=== PATIENT | male | born 1980 | race African-American/Black ===

== ENCOUNTER 2024-06-14 12:37 | Emergency (ER) | payer MEDICAID, OTHER ==
[~2024-06-14] VITALS: Ht 162.6 cm; Wt 66.5 kg
[2024-06-14 14:07] LABS: Basophils # (auto) 0 10 ^3/uL (0-0.2); Basophils % (auto) 0.7 % (0.0-2.0); Eosinophils # (auto) 0.3 10 ^3/uL (0-0.8); Eosinophils % (auto) 5.8 % (0.0-7.0); Hematocrit 29.4 % (41.0-53.0); Hemoglobin 10.4 g/dL (13.5-17.5); Lymphocytes # (auto) 1.4 10 ^3/uL (0.4-5.4); Lymphocytes % (auto) 26.9 % (10.0-50.0); Mean Corpuscular Hemoglobin 31.9 pg (28.0-32.0); Mean Corpuscular Hgb Conc. 35.2 g/dL (32.0-36.0); Mean Corpuscular Volume 90.7 fL (80.0-100.0); Monocytes # (auto) 0.4 10 ^3/uL (0-1.3); Monocytes % (auto) 7.7 % (0.0-12.0); Neutrophils # (auto) 3.1 10 ^3/uL (1.6-8.6); Neutrophils % (auto) 58.9 % (37.0-80.0); Red Blood Cells 3.24 10^6/uL (4.5-5.90); Red Cell Distribution Width 14.3 % (11.8-14.3); White Blood Cell 5.3 10^3/uL (4.4-10.8)
[2024-06-14 14:22] LABS: Alanine Aminotransferase 16 U/L (7-40); Albumin 4.2 g/dL (3.2-4.8); Alkaline Phosphatase 81 U/L (46-116); Amylase 144 U/L (30-118); Anion Gap 8 (5-15); Aspartate Aminotransferase 11 U/L (13-40); BUN/Creatinine Ratio 6.9 (10.0-20.0); Bilirubin, Total 0.2 mg/dL (0.2-1.0); Blood Urea Nitrogen 8 mg/dL (9-23); Calcium 9.4 mg/dL (8.7-10.4); Carbon Dioxide 21 mmol/L (20-30); Chloride 112 mmol/L (98-107); Glucose 153 mg/dL (74-106); Lipase 28 U/L (12-53); Potassium 3.7 mmol/L (3.5-5.1); Sodium 141 mmol/L (136-145); Total Protein 6.8 g/dL (5.7-8.2)
[2024-06-14 16:25] LABS: Urine Bacteria None Seen /hpf (None Seen)
[2024-06-14 16:43] LABS: Urine Blood Negative /uL (Negative); Urine Clarity Clear (Clear); Urine Color Yellow (Yellow); Urine Protein, UAD TRACE (Negative); Urine Specific Gravity 1.022 (1.001-1.035); Urine Sperm PRESENT /hpf (None Seen); Urine Urobilinogen Normal (Negative); Urine WBC <1 /hpf (0 - 3)
[2024-06-14] MEDS: IOHEXOL 300 MG/ML 100ML BOTTLE IJ ONE ×2 (20:18)
[2024-06-14 21:13] VITALS: BP 123/68; PULSE 99; RESP 18; TEMP 98.1; O2SAT 100
[2024-06-14] MEDS ORDERED: KETOROLAC TROMETH 30 MG/ML 1ML VIAL IV ONE (21:45)
[2024-06-14] MEDS ORDERED: NAP500T GT (21:45)
[2024-06-14] MEDS: KETOROLAC TROMETH 30 MG/ML 1ML VIAL IM ONE (22:06)
== END 2024-06-14 22:08 | disposition home or self-care (01) ==
LOC: ER 12:39
DX: K86.1 Other chronic pancreatitis (principal); G89.29 Other chronic pain; M54.9 Dorsalgia, unspecified; F20.9 Schizophrenia, unspecified; Z88.8 Allergy status to other drugs, medicaments and biological substances
CPT/HCPCS: 36415; 74177; 80053; 81001; 82150; 83690; 85025; 96372; 99285; J1885; Q9967

== ENCOUNTER 2025-01-15 15:16 | Emergency (ER) | payer MEDICAID ==
[~2025-01-15] VITALS: Ht 177.8 cm; Wt 69.3 kg
[~2025-01-15 15:16] MED LIST: NAP500T GT
[2025-01-15] MEDS ORDERED: ACETAMINOPHEN 500 MG TAB or CAP PO ONE (16:00)
--- NOTE | 2025-01-15 17:01 | DVH ---
INDICATION: Pain/trauma TECHNIQUE: 3 views of the cervical spine were obtained. COMPARISON: None FINDINGS: The cervical spine is visualized from C1-C7. There is loss of the normal cervical lordosis which can be positional. No fractures or subluxations are identified. Multilevel degenerative changes of the spine. Alignment appears unremarkable. Prevertebral soft tissues are within normal limits. IMPRESSION: 1. No evidence for fracture or subluxation.
[2025-01-15] MEDS ORDERED: HYDR-4902 PO (17:12)
[2025-01-15] MEDS ORDERED: CYCL-839 PO (17:12)
[2025-01-15] MEDS ORDERED: IBUP-1455 PO (17:12)
--- NOTE | 2025-01-15 17:12 | ED.PDOC ---
Back pain HPI HPI Comments This patient is a 44-year-old male who comes to the ED today for evaluation of neck pain concerns. Patient has a history of from a to his neck that was recent. Patient states that that event had resolved until two days ago when he jerked his neck dealing with his animal and his neck has been stiff and painful ever since. Patient denies any fever nausea or vomiting. Vital signs were stable on arrival. Chief Complaint: Neck Pain Time Seen by MD: 16:09 Reviewed Notes: Nurses Notes Allergies: Coded Allergies: Valproic Acid (Verified Allergy, Unknown, 06/14/24) Home Meds Active Scripts Naproxen (NAPROSYN TABLET) 500 Mg Tb, 500 MG GT BID for 7 Days, #14 TAB Prov:CARMITA KUMARI MD 06/14/24 Information Source: Patient Mode of Arrival: Ambulatory Timing: Days Duration: Since onset Location of Back pain: (B) Cervical Severity: Moderate Prehospital treatment: Pain Meds Quality: Aching, Burning, Cramping Onset: Other (Strain) Circumstance: Sporting Past Medical History PAST MEDICAL HISTORY: Schizophrenia Past Medical History (Other): Recent neck pain concerns Surgical History: Denies all surgeries Family History Family History: Reviewed,noncontributory to illness, Unknown Social History Smoker: Non-Smoker Alcohol: Heavy, Sober Drugs: Denies Drug Use Lives In: Home Constitutional: denies: chills, diaphoresis, fatigue, fever, malaise, sweats, weakness, others EENTM: denies: blurred vision, double vision, ear bleeding, ear discharge, ear drainage, ear pain, ear ringing, eye pain, eye redness, hearing loss, mouth pain, mouth swelling, nasal discharge, nose bleeding, nose congestion, nose pain, photophobia, tearing, throat pain, throat swelling, voice changes, others Respiratory: denies: cough, hemoptysis, orthopnea, SOB at rest, shortness of breath, SOB with excertion, stridor, wheezing, others Cardiovascular: denies: chest pain, dizzy spells, diaphoresis, Dyspnea on exertion, edema, irregular heart beat, left arm pain, lightheadedness, palpitations, PND, syncope, others Gastrointestinal: denies: abdomen distended, abdominal pain, blood streaked bowels, constipated, diarrhea, dysphagia, difficulty swallowing, hematemesis, melena, nausea, poor appetite, poor fluid intake, rectal bleeding, rectal pain, vomiting, others Genitourinary: denies: burning, dysuria, flank pain, frequency, hematuria, incontinence, penile discharge, penile sore, pain, testicle pain, testicle swelling, urgency, others Neurological: denies: dizziness, fainting, headache, left sided numbness, left sided weakness, numbness, paresthesia, pre-existing deficit, right sided numbness, right sided weakness, seizure, speech problems, tingling, tremors, weakness, others Musculoskeletal: reports: neck pain; denies: back pain, gout, joint pain, joint swelling, muscle pain, muscle stiffness, others Integumetry: denies: bruises, change in color, change in hair/nails, dryness, laceration, lesions, lumps, rash, wounds, others Allergic/Immunocompromised: denies: Difficulty Healing, Frequent Infections, Hives, Itching, others Hematologic/Lymphatic: denies: anemia, blood clots, easy bleeding, easy bruising, swollen glands, others Endocrine: denies: excessive hunger, excessive sweating, excessive thirst, excessive urination, flushing, intolerance to cold, intolerance to heat, unexplained weight gain, unexplained weight loss, others Psychiatric: denies: anxiety, bipolar disorder, depression, hopeless, panic disorder, schizophrenia, sleepless, suicidal, others Physical Exam General Appearance: Moderate Distress (Moderate distress due to neck pain concerns.), Normal HEENT: Normal ENT Inspection, Pharynx Normal, TMs Normal Neck: Other (Diffuse bilateral posterior tenderness to palpation with [id number] hypertonicity appreciated. Patient had significant reduced range of motion. Tender to palpation throughout. No step-offs noted. No raccoon or aleman signs.) Respiratory: Chest Non-Tender, Lungs Clear, No Accessory Muscle Use, No Respiratory Distress, Normal Breath Sounds Cardiovascular: No Edema, No JVD, No Murmur, No Gallop, Normal Peripheral Pulses, Regular Rate/Rhythm Breast Exam: Deferred Gastrointestinal: No Organomegaly, Non Tender, No Pulsatile Mass, Normal Bowel Sounds, Soft Genitalia: Deferred Pelvic: Deferred Rectal: Deferred Extremities: No calf tenderness, Normal capillary refill, Normal inspection, Normal range of motion, Non-tender, No pedal edema Neurologic: Alert, No Motor Deficits, Normal Affect, Normal Mood, No Sensory Deficits Cerebellar Function: Normal Reflexes: Normal Skin: Dry, Normal Color, Warm Lymphatic: No Adenopathy Was a procedure done? Was a procedure done?: No Back Pain Differential Dx Differential Diagnosis: Other (Degenerative disc disease of the cervical spine, cervical vertebrae fracture, cervical muscle strain) X-Ray, Labs, Meds, VS Vital Signs Date Time Temp Pulse Resp B/P (MAP) Pulse Ox O2 Delivery O2 Flow Rate FiO2 01/15/25 15:37 100.0 109 18 148/96 (113) 97 X-Ray, Labs, Meds, VS Comment All studies performed the ED were evaluated by me personally. Imaging studies were unremarkable for any acute fractures. Patient appears to be suffering from a neck spasm or cervical strain. Advise utilizing medication as directed as well as ice therapy. Time of 1ST Reevaluation: 17:08 Reevaluation 1ST: Improved Consultation: PCP Patient Education/Counseling: Diagnosis, Treatment Family Education/Counseling: Diagnosis, Treatment Departure 1 Departure Time of Disposition: 17:09 Impression: Primary Impression: Cervical muscle strain Disposition: HOME / SELF CARE / HOMELESS Condition: Stable Additional Instructions: Advised patient utilize medication as needed for symptomatic relief as well as ice therapy. If symptoms continue to caused the patient problems longer than in the next few days, patient will need to follow up with primary care provider for continued evaluation. e-Prescriptions Hydrocodone-Acetaminophen (Hydrocodone Bitartrate/AC 5-325 mg) 1 Tab Tab 1 TAB PO Q6HP PRN, #15 TAB Prov: FRANK RASHID PAC 01/15/25 Cyclobenzaprine Hcl (Cyclobenzaprine Hcl) 10 Mg Tab 10 MG PO Q8HP PRN, #15 TAB Prov: FRANK RASHID PAC 01/15/25 Ibuprofen Micronized (Ibuprofen) 800 Mg Tab 800 MG PO Q8HP PRN, #20 TAB Prov: FRANK RASHID PAC 01/15/25 Discharged With: Self, Friend Critical Care Note Critical Care Time?: No Stability Stability form required: No Heart Score Heart Score: Heart Score Response (Comments) Value History N/A 0 EKG N/A 0 Age N/A 0 Risk Factors N/A 0 Troponin N/A 0 Total 0 FRANK RASHID PAC Jan 15, 2025 17:12
[2025-01-15] MEDS: HYDROcodone-ACET 10/325MG TAB PO ONE (17:46)
[2025-01-15] MEDS: KETOROLAC TROMETH 60MG/2ML VIAL IM ONE (17:46)
[2025-01-15 17:51] VITALS: BP 140/42; PULSE 104; RESP 18; TEMP 97.4; O2SAT 97
== END 2025-01-15 18:04 | disposition home or self-care (01) ==
LOC: ER 15:16
DX: S16.1XXA Strain of muscle, fascia and tendon at neck level, initial encounter (principal); F20.9 Schizophrenia, unspecified; Z79.1 Long term (current) use of non-steroidal anti-inflammatories (NSAID); X58.XXXA Exposure to other specified factors, initial encounter; Y93.89 Activity, other specified; Y92.89 Other specified places as the place of occurrence of the external cause; Y99.8 Other external cause status
CPT/HCPCS: 72040; 96372; 99283; J1885

== ENCOUNTER 2025-01-18 11:06 | Emergency (ER) | payer MEDICAID ==
[~2025-01-18] VITALS: Ht 177.8 cm; Wt 68.1 kg
[~2025-01-18 11:06] MED LIST changes: +CYCL-839 PO; +HYDR-4902 PO; +IBUP-1455 PO
[2025-01-18] MEDS: KETOROLAC TROMETH 30 MG/ML 1ML VIAL IV ONE (14:04)
[2025-01-18] MEDS: methylPREDNISolone SOD SUCC 125 MG/2 ML VL IV ONE (14:04)
[2025-01-18 14:17] LABS: Basophils # (auto) 0 10 ^3/uL (0-0.2); Basophils % (auto) 0.2 % (0.0-2.0); Eosinophils # (auto) 0.2 10 ^3/uL (0-0.8); Eosinophils % (auto) 1.4 % (0.0-7.0); Hematocrit 37.3 % (41.0-53.0); Hemoglobin 12.6 g/dL (13.5-17.5); Lymphocytes # (auto) 1.1 10 ^3/uL (0.4-5.4); Lymphocytes % (auto) 6.1 % (10.0-50.0); Mean Corpuscular Hemoglobin 30.3 pg (28.0-32.0); Mean Corpuscular Hgb Conc. 33.7 g/dL (32.0-36.0); Mean Corpuscular Volume 89.8 fL (80.0-100.0); Monocytes # (auto) 0.9 10 ^3/uL (0-1.3); Monocytes % (auto) 5.1 % (0.0-12.0); Neutrophils # (auto) 15.2 10 ^3/uL (1.6-8.6); Neutrophils % (auto) 87.2 % (37.0-80.0); Platelet Count (auto) 223 10^3/uL (140-450); Red Blood Cells 4.15 10^6/uL (4.5-5.90); Red Cell Distribution Width 13.4 % (11.8-14.3); White Blood Cell 17.5 10^3/uL (4.4-10.8)
[2025-01-18 14:24] LABS: Sodium 142 mmol/L (136-145)
[2025-01-18 14:25] LABS: Anion Gap 8 (5-15); Calcium 9.3 mg/dL (8.7-10.4); Carbon Dioxide 25 mmol/L (20-31)
[2025-01-18 14:26] LABS: Chloride 109 mmol/L (98-107); Potassium 4.5 mmol/L (3.5-5.1)
[2025-01-18 14:30] LABS: Glucose 84 mg/dL (74-106)
[2025-01-18 14:41] LABS: BUN/Creatinine Ratio 13.1 (10.0-20.0)
[2025-01-18 14:42] LABS: Blood Urea Nitrogen 14 mg/dL (9-23)
[2025-01-18 16:20] LABS: Rapid Strep A Screen-Throat Positive
--- NOTE | 2025-01-18 16:27 | DVH ---
EXAM: CT NECK WITH CONTRAST SOFT INDICATION: sore air. sob. suspision for abscess EXAM DATE: 01/18/2025 03:38 PM COMPARISON: None TECHNIQUE: Multiple axial CT images of the neck were obtained using bone algorithm. Axial and coronal reformatting was done. Bone and soft tissue windows were reviewed. Radiation Dose Information: CT Dose: CTDI volume is 15.34 mGy. Dose-length product is 422.62 mGy*cm Findings: Nasopharynx, oropharynx, hypopharynx, and larynx are normal in caliber without evidence of focal mass . Parotid, submandibular, and sublingual glands are within normal limits. The tongue is unremarkable. Partial opacification of the maxillary and ethmoid sinuses. Thyroid gland within normal limits. No evidence of superior mediastinal lymphadenopathy. Cervical soft tissues within normal limits with no evidence of significant cervical lymphadenopathy. Musculoskeletal structures grossly unremarkable with no evidence of acute osseous abnormality. No abnormal enhancement. Impression: 1. No evidence of an acute fracture or abnormal enhancement. 2. Maxillary and ethmoid sinus disease.
[2025-01-18] MEDS ORDERED: PENI500T2 PO (16:52)
[2025-01-18] MEDS ORDERED: IBUP-1456 PO (16:52)
[2025-01-18] MEDS ORDERED: PRED20TA2 PO (16:52)
--- NOTE | 2025-01-18 16:52 | ED.PDOC ---
Eye-HPI HPI Comments Recently seen for sore throat presents for worsening throat pain associated with trouble breathing. Feels like throat is narrowing. Reports pain has been gradually worsening since his last visit. Denies chest pain shortness of breath Denies inability to move neck, history of meningitis Denies difficulty swallowing nor persistent salivation Denies fevers chills night sweats Denies persistent cough, runny nose, congestion Denies loss of appetite, unintentional weight loss over the past 3 months Denies voice changes Denies history of asthma or seasonal allergies Chief Complaint: Sore Throat Time Seen by MD: 11:58 Reviewed Notes: Nurses Notes, Medications, Allergies Allergies: Coded Allergies: Valproic Acid (Verified Allergy, Unknown, 06/14/24) Home Meds Active Scripts Ibuprofen (Ibuprofen) 800 Mg Tab, 1 TAB PO TID for 10 Days, #30 TAB 0 Refills Prov:VICKEY CANALES PRODUCTION WORKER 01/18/25 Prednisone (Prednisone) 20 Mg Tab, 60 MG PO DAILY for 5 Days, #15 TAB 0 Refills Prov:VICKEY CANALES PRODUCTION WORKER 01/18/25 Penicillin V Potassium (Veetids) 500 Mg Tab, 1 TAB PO BID for 10 Days, #20 TAB 0 Refills Prov:VICKEY CANALES PRODUCTION WORKER 01/18/25 Hydrocodone-Acetaminophen (Hydrocodone Bitartrate/AC 5-325 mg) 1 Tab Tab, 1 TAB PO Q6HP PRN, #15 TAB Prov:FRANK RASHID PAC 01/15/25 Cyclobenzaprine Hcl (Cyclobenzaprine Hcl) 10 Mg Tab, 10 MG PO Q8HP PRN, #15 TAB Prov:FRANK RASHID PAC 01/15/25 Ibuprofen Micronized (Ibuprofen) 800 Mg Tab, 800 MG PO Q8HP PRN, #20 TAB Prov:FRANK RASHID PAC 25 Naproxen (NAPROSYN TABLET) 500 Mg Tb, 500 MG GT BID for 7 Days, #14 TAB Prov:CARMITA KUMARI MD 06/14/24 Information Source: Patient Mode of Arrival: Ambulatory Past Medical History PAST MEDICAL HISTORY: Schizophrenia Surgical History: Denies all surgeries Family History Family History: Reviewed,noncontributory to illness, Unknown Social History Smoker: Non-Smoker Alcohol: Heavy, Sober Drugs: Denies Drug Use Lives In: Home All Other Systems: Reviewed and Negative (Per HPI) Physical Exam General Appearance: No Apparent Distress, Normal HEENT: Normal ENT Inspection, Pharyngeal Erythema, TMs Normal Neck: Full Range of Motion, Non-Tender, Normal, Normal Inspection Respiratory: Chest Non-Tender, Lungs Clear, No Accessory Muscle Use, No Respiratory Distress, Normal Breath Sounds Cardiovascular: No Edema, No JVD, No Murmur, No Gallop, Normal Peripheral Pulses, Regular Rate/Rhythm Breast Exam: Deferred Gastrointestinal: No Organomegaly, Non Tender, No Pulsatile Mass, Normal Bowel Sounds, Soft Genitalia: Deferred Pelvic: Deferred Rectal: Deferred Extremities: No calf tenderness, Normal capillary refill, Normal inspection, Normal range of motion, Non-tender, No pedal edema Musculoskeletal : Apperance: Normal Neurologic: Alert, cleaning validation consultant II-XII nml as Tested, No Motor Deficits, Normal Affect, Normal Mood, No Sensory Deficits Cerebellar Function: Normal Reflexes: Normal Skin: Dry, Normal Color, Warm Lymphatic: No Adenopathy Was a procedure done? Was a procedure done?: No EENT DIFF Eye: Other Sore Throat: Pharyngitis, Streptococcal, URI X-Ray, Labs, Meds, VS Vital Signs Date Time Temp Pulse Resp B/P (MAP) Pulse Ox O2 Delivery O2 Flow Rate FiO2 01/18/25 17:00 98.6 101 20 101/72 (82) 97 98.6 01/18/25 13:39 100 20 98 Room Air 01/18/25 13:39 98.9 100 20 123/77 (92) 98 98.9 01/18/25 11:31 98.0 113 18 100/62 (75) 96 Lab Test 01/18/25 13:58 01/18/25 13:16 Range/Units White Blood Count 17.5 H 4.4-10.8 10^3/uL Red Blood Count 4.15 L 4.5-5.90 10^6/uL Hemoglobin 12.6 L 13.5-17.5 g/dL Hematocrit 37.3 L 41.0-53.0 % Mean Corpuscular Volume 89.8 80.0-100.0 fL Mean Corpuscular Hemoglobin 30.3 28.0-32.0 pg Mean Corpuscular Hemoglobin Concent 33.7 32.0-36.0 g/dL Red Cell Distribution Width 13.4 11.8-14.3 % Platelet Count 223 140-450 10^3/uL Mean Platelet Volume 8.8 6.9-10.8 fL Neutrophils (%) (Auto) 87.2 H 37.0-80.0 % Lymphocytes (%) (Auto) 6.1 L 10.0-50.0 % Monocytes (%) (Auto) 5.1 0.0-12.0 % Eosinophils (%) (Auto) 1.4 0.0-7.0 % Basophils (%) (Auto) 0.2 0.0-2.0 % Neutrophils # (Auto) 15.2 H 1.6-8.6 10 ^3/uL Lymphocytes # (Auto) 1.1 0.4-5.4 10 ^3/uL Monocytes # (Auto) 0.9 0-1.3 10 ^3/uL Eosinophils # (Auto) 0.2 0-0.8 10 ^3/uL Basophils # (Auto) 0 0-0.2 10 ^3/uL Nucleated Red Blood Cells 0.0 % Sodium Level 142 136-145 mmol/L Potassium Level 4.5 3.5-5.1 mmol/L Chloride Level 109 H 98-107 mmol/L Carbon Dioxide Level 25 20-31 mmol/L Anion Gap 8 5-15 Blood Urea Nitrogen 14 9-23 mg/dL Creatinine 1.07 0.700-1.30 mg/dL Glomerular Filtration Rate Calc 88 >90 mL/min BUN/Creatinine Ratio 13.1 10.0-20.0 Serum Glucose 84 74-106 mg/dL Calcium Level 9.3 8.7-10.4 mg/dL Group A Streptococcus Rapid Positive X-Ray, Labs, Meds, VS Comment Exam/test findings consistent with strep throat infection. Encouraged fluid intake Acetaminophen to reduce pain/fever NSAIDs to reduce pain/fever Viscous lidocaine as needed Nonpharmacological recommendations given Warm salt water gargles Throat lozenges Humidified air On reevaluation, patient had symptomatic improvement. Patient is stable for discharge at this time. External notes reviewed. Test results and diagnostic imaging interpreted. All diagnostic findings, discharge care, education and instructions provided Follow-up with PCP in 2 to 3 days Patient verbalized understanding and agreed to treatment plan Vital signs stable, afebrile, no acute distress noted Patient ambulatory with strong steady gait Advised to return precautions for any new or worsening symptoms, return to ER immediately for re-evaluation Patient is aware that the purpose of this visit was for an acute medical emergency requiring emergent stabilization. Chronic conditions, including malignancies have not been ruled out. Patient is instructed to follow up with PCP as directed and discharge instructions for continued care and workup. If unable to arrange follow-up, patient is to return to the emergency department for reassessment. Patient (parent or legal guardian if applicable) was given verbal and written discharge instructions and acknowledges understanding. Time of 1ST Reevaluation: 16:00 Reevaluation 1ST: Improved Patient Education/Counseling: Diagnosis, Treatment Family Education/Counseling: Diagnosis, Treatment Departure 1 Departure Time of Disposition: 16:50 Impression: Primary Impression: Strep throat Disposition: HOME / SELF CARE / HOMELESS Condition: Stable e-Prescriptions Ibuprofen (Ibuprofen) 800 Mg Tab 1 TAB PO TID for 10 Days, #30 TAB 0 Refills Prov: VICKEY CANALES NP 01/18/25 Prednisone (Prednisone) 20 Mg Tab 60 MG PO DAILY for 5 Days, #15 TAB 0 Refills Prov: VICKEY CANALES NP 01/18/25 Penicillin V Potassium (Veetids) 500 Mg Tab 1 TAB PO BID for 10 Days, #20 TAB 0 Refills Prov: VICKEY CANALES NP 01/18/25 Critical Care Note Critical Care Time?: No Stability Stability form required: No Heart Score Heart Score: Heart Score Response (Comments) Value History N/A 0 EKG N/A 0 Age N/A 0 Risk Factors N/A 0 Troponin N/A 0 Total 0 VICKEY CANALES NP Jan 18, 2025 16:52
[2025-01-18 17:00] VITALS: BP 101/72; PULSE 101; RESP 20; TEMP 98.6; O2SAT 97
== END 2025-01-18 16:52 | disposition home or self-care (01) ==
LOC: ER 11:06
DX: J02.0 Streptococcal pharyngitis (principal); F20.9 Schizophrenia, unspecified; M54.2 Cervicalgia; Z79.899 Other long term (current) drug therapy
CPT/HCPCS: 36415; 70491; 80048; 85025; 87880; 96374; 96375; 99285; J1885; J2919; Q9967